=== PATIENT | female | born 1985 | race Caucasian/White ===

== ENCOUNTER 2018-08-14 22:24 | Emergency (ER) | payer BC ==
--- NOTE | 2018-08-14 23:29 | ER Document Report ---
ED General - General Chief Complaint: Abdominal Pain Stated Complaint: VOMITING Time Seen by Provider: 08/14/18 23:28 TRAVEL OUTSIDE OF THE [place] IN LAST 30 DAYS: No - HPI Patient complains to provider of: Vomiting Onset: Other - 33-year-old otherwise healthy woman who presents for evaluation of vomiting while at a event this evening. She notes that she had a proximally 3 plates of let us then began the onset of crampy abdominal pain as well as vomiting. She vomited approximately 5 times prior to arrival. She denies any other symptoms fevers chills diarrhea constipation rashes or other illnesses. Is uncertain whether or not she might be today does not believe she is. - Related Data Allergies/Adverse Reactions: Penicillins Allergy (Verified 08/14/18 22:31) Past Medical History - General Information source: Patient - Social History Smoking Status: Never Smoker Chew tobacco use (# tins/day): No Frequency of alcohol use: Occasional Drug Abuse: None Family History: None Patient has suicidal ideation: No Patient has homicidal ideation: No Renal/ Medical History: Denies: Hx Peritoneal Dialysis Review of Systems - Review of Systems -: Yes All other systems reviewed and negative Physical Exam - Vital signs Vitals: Temp Pulse Resp BP Pulse Ox 98.5 F 99 16 115/65 100 08/15/18 02:34 08/15/18 02:34 08/15/18 02:34 08/15/18 02:34 08/15/18 02:34 - General General appearance: Appears well In distress: None - HEENT Head: Normocephalic, Atraumatic Eyes: Normal Pupils: PERRL - Respiratory Respiratory status: No respiratory distress Chest status: Nontender Breath sounds: Normal Chest palpation: Normal - Cardiovascular Rhythm: Regular Heart sounds: Normal auscultation Murmur: No - Abdominal Inspection: Normal Distension: No distension Bowel sounds: Normal Tenderness: Nontender Organomegaly: No organomegaly - Back Back: Normal, Nontender - Extremities General upper extremity: Normal inspection, Nontender, Normal color, Normal ROM , Normal temperature General lower extremity: Normal inspection, Nontender, Normal color, Normal ROM , Normal temperature, Normal weight bearing. No: Nuha's sign - Neurological Neuro grossly intact: Yes Cognition: Normal Orientation: AAOx4 [place] Coma Scale Eye Opening: Spontaneous [place] Coma Scale Verbal: Oriented [place] Coma Scale Motor: Obeys Commands [place] Coma Scale Total: 15 Speech: Normal Motor strength normal: LUE, RUE, LLE, RLE Sensory: Normal - Psychological Associated symptoms: Normal affect, Normal mood Course - Re-evaluation Re-evalutation: 08/15/18 07:09 33-year-old female presents for evaluation of vomiting. She is eating salad prior to arrival likely has some variety of food intoxication. We will plan for obtaining urinalysis as well as a urine test will administer Zofran and a liter of normal saline and p.o. challenge. Urinalysis unremarkable, patient's abdominal examination is benign, she is not at this time. Following administration of Zofran she was able to tolerate p.o. though she did complain of a sore throat related to her episodes of emesis. We will instruct regarding symptomatic care including saline gargles. She will be given return precautions and expectant management do not believe this represents surgical abdomen as her abdominal examination remains benign. She is able to tolerate p.o. in the emergency department remained hemodynamically stable throughout her time. - Vital Signs Vital signs: Temp Pulse Resp BP Pulse Ox 98.5 F 99 16 115/65 100 08/15/18 02:34 08/15/18 02:34 08/15/18 02:34 08/15/18 02:34 08/15/18 02:34 - Laboratory Laboratory results interpreted by me: 08/15/18 01:36 Urine Blood SMALL H Discharge - Discharge Clinical Impression: Sore throat Nausea & vomiting Qualifiers: Vomiting type: unspecified Vomiting Intractability: unspecified Qualified Code( s): R11.2 - Nausea with vomiting, unspecified Condition: Good Disposition: HOME, SELF-CARE Instructions: Antinausea Medication ([facility]) Additional Instructions: Your seen today for your vomiting. You had an evaluation including a physical exam as well as tests of your urine, your given medicine to help with your nausea which did help. You are given a low dose of steroid to help with the swelling in her throat. Use the medicine for nausea only as necessary. Return for any worsening fevers or chills inability to eat or drink or pain. Otherwise follow-up with primary physician in the coming week. Prescriptions: Ondansetron [Zofran Odt 4 mg Tablet] 1 - 2 tab PO Q4H PRN #15 tab.rapdis PRN Reason: For Nausea/Vomiting
[2018-08-14] MEDS ORDERED: ONDANSETRON HCL INJ/PF 4 MG/2 ML SDV IV ONE (23:59)
[2018-08-14] MEDS ORDERED: RINGERS SOLUTION,LACTATED 1,000 ML IV ONE (23:59)
[2018-08-15 02:20] LABS: APPEARANCE,URINE CLEAR; BILIRUBIN,URINE NEGATIVE (NEGATIVE); COLOR,URINE YELLOW; GLUCOSE, URINE NEGATIVE (NEGATIVE); KETONES,URINE NEGATIVE (NEGATIVE); LEUKOCYTE ESTERASE,URINE NEGATIVE (NEGATIVE); NITRITE,URINE NEGATIVE (NEGATIVE); PROTEIN,URINE NEGATIVE (NEGATIVE); URINE SPECIFIC GRAVITY 1.016; UROBILINOGEN,URINE NEGATIVE mg/dL (<2.0)
[2018-08-15] MEDS ORDERED: LIDOCAINE 2% VISCOUS SOLN 20 ML UDCUP PO ONE (02:23)
[2018-08-15] MEDS ORDERED: DEXAMETHASONE 4 MG TABLET PO ONE (02:35)
[2018-08-15 02:40] VITALS: BP 115/65
== END 2018-08-15 02:49 | disposition home or self-care (01) ==
LOC: ER 22:24
DX: R11.2 Nausea with vomiting, unspecified (principal); J02.9 Acute pharyngitis, unspecified; Z88.0 Allergy status to penicillin
CPT/HCPCS: 99284; 96361; 96374; 81025; 81001; J2405; J7120